=== PATIENT | female | born 1955 ===

== ENCOUNTER 2023-01-19 10:56 | Outpatient (CLI) | payer OTHER, SELFPAY ==
--- NOTE | 2023-01-19 11:35 | DI.RAD_ITS ---
Exam(s) XR KNEE LT 3V AP,LAT,LUIS FERNANDO EXAM: XR KNEE LT 3V AP,LAT,LUIS FERNANDO CLINICAL HISTORY: knee pain. TECHNIQUE: 2D digital imaging was performed of the left knee. Three images were obtained. AP, late ral and PA tunnel views were obtained. COMPARISON: There are no priors for comparison. FINDINGS: BONES: No acute fracture is present. No bony destructive lesion is seen. There is an enthesophyte at the superior patella. JOINTS: There is marked narrowing in the medial femoral tibial joint. Osteophytes are seen in all 3 joint compartments. There is a small joint effusion. No loose body. SOFT TISSUE: Normal. IMPRESSION: Osteoarthritis of the knee. DATA REPOSITORY: RADIATION DOSE DELIVERED:
--- NOTE | 2023-01-19 11:35 | DI.RAD_ITS ---
Exam(s) XR KNEE RT 3V AP,LAT,LUIS FERNANDO EXAM: XR KNEE RT 3V AP,LAT,LUIS FERNANDO CLINICAL HISTORY: knee pain. TECHNIQUE: 2D digital imaging was performed of the right knee. Three views obtained. AP, lateral an d PA tunnel views were obtained. COMPARISON: No exams were available for comparison FINDINGS: BONES: No acute fracture is present. No bony destructive lesion is seen. JOINTS: There is marked narrowing of the lateral femoral tibial joint. There are osteophytes seen in all 3 joint compartments. There is a small joint effusion. SOFT TISSUE: Normal. IMPRESSION: Osteoarthritis of the right knee. DATA REPOSITORY: RADIATION DOSE DELIVERED:
== END 2023-01-19 10:57 | disposition home or self-care (01) ==
LOC: DIORS 10:57
PROVIDERS: PCP Nurse Practitioner Family; Referring Provider Nurse Practitioner Family; Visit Provider Physician Assistant
DX: M17.0 Bilateral primary osteoarthritis of knee (principal)
CPT/HCPCS: 73562